=== PATIENT | female | born 1990 | race Caucasian/White ===

== ENCOUNTER 2017-09-28 18:19 | Emergency (ER) | payer SELFPAY ==
[~2017-09-28] VITALS: Ht 167.6 cm; Wt 134.6 kg
[2017-09-28] MEDS ORDERED: CLINDAMYCIN PMX 600MG/50ML 50 ML IVPB ONE (19:00)
[2017-09-28] MEDS ORDERED: SODIUM CHLORIDE FLUSH 10ML SYR IVF ONE (19:00)
[2017-09-28] MEDS ORDERED: CEFTRIAXONE 1,000 MG in SODIUM CHLORIDE 0.9% 50 ML IVPB ONE (19:00)
[2017-09-28] MEDS ORDERED: DIPH,PERTUSS(ACELL),TET VAC/PF 0.5 ML IM-VACC ONE ×2 (19:00→19:38)
[2017-09-28 19:04] LABS: BASOPHILS # (AUTO) 0.02 x10^3/uL (0-0.1); BASOPHILS % (AUTO) 0 % (0-1); EOSINOPHILS # (AUTO) 0.15 x10^3/uL (0-0.4); EOSINOPHILS % (AUTO) 2 % (1-7); LYMPHOCYTES # (AUTO) 2.32 x10^3/uL (1-3.4); LYMPHOCYTES % (AUTO) 24 % (22-44); MD NO; MEAN CORPUSCULAR HGB CONC 34.5 g/dL (32.4-35.8); MEAN CORPUSCULAR VOLUME 89.7 fL (80-100); MEAN PLATELET VOLUME 7.8 fL (7.4-10.4); MONOCYTES # (AUTO) 0.76 x10^3/uL (0.2-0.8); MONOCYTES % (AUTO) 8 % (2-9); NEUTROPHILS % (AUTO) 66 % (42-75); PLATELET COUNT 310 x10^3/uL (130-400); RED BLOOD COUNT 4.69 x10^6/uL (3.82-5.3)
[2017-09-28] MEDS ORDERED: CLINDAMYCIN PMX 600MG/50ML 50 ML ONE (19:38)
[2017-09-28] MEDS ORDERED: CEFTRIAXONE PMX 1GM/50ML 50 ML ONE (19:38)
[2017-09-28 20:06] LABS: ALBUMIN 3.8 g/dL (3.4-5.0); ANION GAP 8 mmol/L (5-15); CALCIUM 9.1 mg/dL (8.5-10.1); CHLORIDE 107 mmol/L (98-107); CREATININE 0.77 mg/dL (0.55-1.02)
[2017-09-28 21:28] VITALS: BP 148/80
== END 2017-09-28 21:32 | disposition home or self-care (01) ==
LOC: ED 21:26
DX: S61.230A Puncture wound without foreign body of right index finger without damage to nail, initial encounter (principal); L03.011 Cellulitis of right finger; W55.01XA Bitten by cat, initial encounter; Y93.89 Activity, other specified; Y92.098 Other place in other non-institutional residence as the place of occurrence of the external cause; Y99.8 Other external cause status
CPT/HCPCS: 36415; 73140; 80048; 82040; 85025; 90471; 90715; 96365; 96368; 99285; J0696

== ENCOUNTER 2017-09-30 17:54 | Emergency (ER) | payer SELFPAY ==
[~2017-09-30] VITALS: Ht 167.6 cm; Wt 135.0 kg
[2017-09-30 20:10] LABS: MEAN CORPUSCULAR HEMOGLOBIN 30.7 pg (27.0-34.8); MEAN CORPUSCULAR HGB CONC 34.6 g/dL (32.4-35.8); MEAN CORPUSCULAR VOLUME 88.9 fL (80-100); MEAN PLATELET VOLUME 7.7 fL (7.4-10.4); PLATELET COUNT 243 x10^3/uL (130-400); RED BLOOD COUNT 4.43 x10^6/uL (3.82-5.3); RED CELL DISTRIBUTION WIDTH 12.8 % (9.6-15.2)
[2017-09-30 20:13] LABS: ALBUMIN 3.4 g/dL (3.4-5.0); ANION GAP 8 mmol/L (5-15); CALCIUM 8.4 mg/dL (8.5-10.1); CHLORIDE 107 mmol/L (98-107); CREATININE 0.93 mg/dL (0.55-1.02)
[2017-09-30 20:20] LABS: BASOPHILS % (AUTO) 0 % (0-1); EOSINOPHILS # (AUTO) 0.11 x10^3/uL (0-0.4); EOSINOPHILS % (AUTO) 2 % (1-7); LYMPHOCYTES % (AUTO) 5 % (22-44); MD SCAN; MONOCYTES # (AUTO) 0.33 x10^3/uL (0.2-0.8); MONOCYTES % (AUTO) 5 % (2-9); NEUTROPHILS # (AUTO) 5.42 x10^3/uL (1.8-6.8); NEUTROPHILS % (AUTO) 88 % (42-75)
[2017-09-30 20:35] VITALS: BP 134/89
== END 2017-09-30 21:20 | disposition home or self-care (01) ==
LOC: ED 20:31
DX: L03.113 Cellulitis of right upper limb (principal); F17.200 Nicotine dependence, unspecified, uncomplicated; W55.01XA Bitten by cat, initial encounter; Y93.89 Activity, other specified; Y92.098 Other place in other non-institutional residence as the place of occurrence of the external cause; Y99.8 Other external cause status
CPT/HCPCS: 36415; 80048; 82040; 85025; 99285

== ENCOUNTER 2017-10-03 07:37 | Emergency (ER) | payer SELFPAY ==
[~2017-10-03] VITALS: Ht 167.6 cm; Wt 105.0 kg
[2017-10-03] MEDS ORDERED: DIPHENHYDRAMINE 50 MG/ML, 1ML ONE (08:22)
[2017-10-03] MEDS ORDERED: methylPREDNISolone SOD SUCC 125 MG/2 ML ONE (08:22)
[2017-10-03] MEDS ORDERED: PLEASE ENTER HEIGHT AND WEIGHT MC SCH (08:30)
[2017-10-03] MEDS ORDERED: SODIUM CHLORIDE FLUSH 10ML SYR IVF ONE (08:30)
[2017-10-03] MEDS ORDERED: SODIUM CHLORIDE 0.9% 1,000ML IVBOLUS ONE (08:30)
[2017-10-03] MEDS ORDERED: methylPREDNISolone SOD SUCC 125 MG/2 ML IVPush ONE (08:30)
[2017-10-03] MEDS ORDERED: DIPHENHYDRAMINE 50 MG/ML, 1ML IVPush ONE (08:30)
[2017-10-03 08:47] LABS: ANION GAP 10 mmol/L (5-15); CALCIUM 7.7 mg/dL (8.5-10.1); CHLORIDE 103 mmol/L (98-107); CREATININE 0.88 mg/dL (0.55-1.02)
[2017-10-03 08:58] LABS: MEAN CORPUSCULAR VOLUME 88.4 fL (80-100); MEAN PLATELET VOLUME 8.2 fL (7.4-10.4); PLATELET COUNT 181 x10^3/uL (130-400); RED BLOOD COUNT 4.77 x10^6/uL (3.82-5.3); RED CELL DISTRIBUTION WIDTH 12.5 % (9.6-15.2)
[2017-10-03 10:12] LABS: MD YES
[2017-10-03] MEDS ORDERED: METRONIDAZOLE PMX 500MG/100ML 100 ML ONE (10:14)
[2017-10-03] MEDS ORDERED: CIPROFLOXACIN/PMX 400MG/200ML 200 ML ONE (10:15)
[2017-10-03 10:16] LABS: BAND#(MANUAL) 0.37 x10^3/uL; BANDS%(MANUAL) 11 % (0-7); EOS#(MANUAL) 0.31 x10^3/uL (0.0-0.4); EOS% (MANUAL) 9 % (1-7); LYMPH#(MANUAL) 0.54 x10^3/uL (1-3.4); LYMPHS% (MANUAL) 16 % (22-44); MONOS#(MANUAL) 0.37 x10^3/uL (0.3-2.7); MONOS% (MANUAL) 11 % (2-9); SEGS% (MANUAL) 53 % (42-75)
[2017-10-03 10:21] LABS: <PLATELET ESTIMATE> ADEQUATE; <PLT MORPHOLOGY> NORMAL PLT MORPH; <RBC MORPHOLOGY> NORMAL
[2017-10-03] MEDS ORDERED: CIPROFLOXACIN/PMX 400MG/200ML 200 ML IV ONE (10:30)
[2017-10-03] MEDS ORDERED: METRONIDAZOLE PMX 500MG/100ML 100 ML IV ONE (10:30)
[2017-10-03 12:06] VITALS: BP 139/87
== END 2017-10-03 12:27 | disposition home or self-care (01) ==
LOC: ED 08:31
DX: S61.250A Open bite of right index finger without damage to nail, initial encounter (principal); T78.40XA Allergy, unspecified, initial encounter; L03.011 Cellulitis of right finger; F17.200 Nicotine dependence, unspecified, uncomplicated; Z88.0 Allergy status to penicillin; W55.01XA Bitten by cat, initial encounter; Y93.89 Activity, other specified; Y92.009 Unspecified place in unspecified non-institutional (private) residence as the place of occurrence of the external cause; Y99.8 Other external cause status
CPT/HCPCS: 36415; 80048; 82040; 83605; 85025; 87040; 96365; 96367; 96375; 99284; J0744; J1200; J2930; J7030; Q0177